=== PATIENT | female | born 1995 | race Caucasian/White ===

== ENCOUNTER 2023-07-30 06:43 | Emergency (ER) | payer BC ==
[2023-07-30 07:10] VITALS: PULSE 94; RESP 16
== END 2023-07-30 07:11 | disposition left against medical advice (07) ==
LOC: ER 06:50
DX: J02.9 Acute pharyngitis, unspecified (principal); Z53.21 Procedure and treatment not carried out due to patient leaving prior to being seen by health care provider
CPT/HCPCS: 99281